=== PATIENT | male | born 1935 | race Caucasian/White ===

== ENCOUNTER 2021-03-02 13:37 | Inpatient (IN) | payer MEDICARE, BC ==
[2021-03-02 14:50] LABS: Hemoglobin 13.8 g/dL (13.5-17.5); Mean Corpuscular HGB CONC 33.9 g/dL (32.0-36.0); Mean Corpuscular Hemoglobin 34.5 pg (27.0-33.0); Mean Corpuscular Volume 101.8 fl (81.2-95.1); Mean Platelet Volume 10.5 fl (7.4-10.4); Platelet Count 117 10x3/uL (150-450); RBC Distribution Width 13.2 % (11.5-14.5); White Blood Cell (WBC) Count 5.5 10x3/uL (3.5-10.5)
[2021-03-02 15:00] LABS: ALT (SGPT) 30 U/L (8-55); AST (SGOT) 47 U/L (5-34); Albumin 3.2 g/dL (3.4-4.8); Alkaline Phosphatase 54 U/L (40-110); Anion Gap 13 mmol/L (10-20); BUN (Urea Nitrogen) 9 mg/dL (8.4-25.7); Bilirubin, Total 0.7 mg/dL (0.2-1.2); Calc. Creatinine Clearance 0 mL/min (70-130); Calcium 8.3 mg/dL (7.8-10.44); Carbon Dioxide 28 mmol/L (23-31); Chloride 98 mmol/L (98-107); Globulin 3.4 g/dL (2.4-3.5); Glucose 84 mg/dL (83-110); Potassium 4.4 mmol/L (3.5-5.1); Protein, Total 6.6 g/dL (5.8-8.1); Sodium 135 mmol/L (136-145)
[2021-03-02 15:19] LABS: CKMB 3.7 ng/mL (0-6.6)
[2021-03-02 15:47] LABS: Monocytes 5 % (0-10)
[2021-03-02 15:54] LABS: Lymphocytes 7 % (21-51); Reactive Lymphocytes 2 % (0-10)
[2021-03-02 15:55] LABS: Neutrophil 85 % (42-75)
[2021-03-02 15:56] LABS: Platelet Morphology Comment Appears Decreased
[2021-03-02] MEDS ORDERED: Dexamethasone 10 MG/ML VIAL ONE (16:07)
[2021-03-02] MEDS ORDERED: cefTRIAXone\\ROCEPHIN 1 GM VIAL ONE (16:08)
[2021-03-02] MEDS ORDERED: Azithromycin 500 MG VIAL ONE (16:08)
[2021-03-02 16:16] LABS: Bilirubin Neg (Negative); Blood, Urine Negative (Negative); Clarity Clear (Clear); Glucose, Urine (Dipstick) >=1000 mg/dL (Negative); Ketone, Urine 5 mg/dL (Negative); Leukocyte Negative (Negative); Nitrite Negative (Negative); Protein, Urine (Dipstick) 30 mg/dl (Neg-Trace); Urobilinogen Normal mg/dL (Less than 2)
[2021-03-02 16:23] LABS: Bacteria/HPF Rare-Few HPF (None Seen); RBC/HPF 0-3 HPF (0-3); Squamous Epithelial 0-3 HPF (0-3); WBC/HPF 0-3 HPF (0-3)
[2021-03-02 18:02] LABS: Troponin I 0.039 ng/mL (< 0.028)
[2021-03-02] MEDS ORDERED: Senokot S 8.6-50 MG TAB PO PRN (18:04)
[2021-03-02] MEDS ORDERED: Ondansetron PF 4 MG/2 ML Vial IVP PRN (18:04)
[2021-03-02] MEDS ORDERED: Acetaminophen 325 MG TAB PO PRN (18:04)
[2021-03-02] MEDS ORDERED: Ondansetron ODT 4 MG TAB PO PRN (18:04)
[2021-03-02] MEDS ORDERED: Acetaminophen 650 MG Suppository PR PRN (18:04)
[2021-03-02] MEDS ORDERED: Dextrose 50% Abboject 50 ML SYRINGE SLOW IVP PRN (18:07)
[2021-03-02] MEDS ORDERED: HumaLOG 300 UNITS/3 ML VIAL SC PRN (18:07)
[2021-03-02] MEDS ORDERED: Dextrose 5% in Water 1,000 ML IV PRN (18:07)
[2021-03-02] MEDS ORDERED: Benzonatate 100 MG CAP PO PRN (18:08)
[2021-03-02] MEDS ORDERED: Guaifenesin DM 100-10/5 ML UDCUP PO PRN (19:03)
[2021-03-02 19:32] VITALS: BMI 27.6
[2021-03-02] MEDS: Melatonin 3 MG TAB PO PRN (20:11)
[2021-03-02] MEDS ORDERED: Enoxaparin Sodium 40 MG/0.4 ML SYRINGE SC SCH (21:00)
[2021-03-03] MEDS ORDERED: Ondansetron PF 4 MG/2 ML Vial IVP PRN (04:56)
[2021-03-03 05:19] LABS: Anion Gap 13 mmol/L (10-20); BUN (Urea Nitrogen) 11 mg/dL (8.4-25.7); Calc. Creatinine Clearance 85 mL/min (70-130); Calcium 8.6 mg/dL (7.8-10.44); Carbon Dioxide 27 mmol/L (23-31); Chloride 102 mmol/L (98-107); Glucose 134 mg/dL (83-110); Potassium 4.6 mmol/L (3.5-5.1); Sodium 137 mmol/L (136-145)
[2021-03-03 05:23] LABS: Hemoglobin 14.4 g/dL (13.5-17.5); Mean Corpuscular Hemoglobin 34.2 pg (27.0-33.0); Mean Corpuscular Volume 100.5 fl (81.2-95.1); RBC Distribution Width 13.2 % (11.5-14.5); Red Blood Cell (RBC) Count 4.21 10x6/uL (4.32-5.72)
[2021-03-03 05:24] LABS: Platelet Count 122 10x3/uL (150-450)
[2021-03-03 06:11] LABS: MDiff Complete? YES
[2021-03-03 06:17] LABS: Band 3 % (5-11); Lymphocytes 5 % (21-51); Monocytes 7 % (0-10); Neutrophil 76 % (42-75); Reactive Lymphocytes 9 % (0-10)
[2021-03-03 06:18] LABS: Platelet Morphology Comment Appears Adequate; RBC Morphology Normal
[2021-03-03] MEDS: Folic Acid/Vit B Comp W-C PO SCH (10:31)
[2021-03-03] MEDS: Aspirin 81 mg Enteric Coated Tablet PO SCH (10:31)
[2021-03-03] MEDS: Enoxaparin Sodium 40 MG/0.4 ML SYRINGE SC SCH (10:31)
[2021-03-03] MEDS: Ascorbic Acid 500 mg Chewable Tablet PO SCH (10:31)
[2021-03-03] MEDS: Zinc Sulfate 220 MG CAP PO SCH (10:31)
[2021-03-03] MEDS: Dexamethasone 20 MG/5 ML VIAL SLOW IVP SCH ×2 (10:32→19:33)
[2021-03-03 17:13] LABS: SARS-CoV-2 PCR by NAA DETECTED (NotDetected)
[2021-03-03] MEDS: Azithromycin 500 MG in Sodium Chloride 0.9% 250 ML 250 ML IVPB SCH (19:31)
[2021-03-03] MEDS: Melatonin 3 MG TAB PO PRN (19:33)
[2021-03-03] MEDS: cefTRIAXone\\ROCEPHIN 1 GM in Sodium Chloride 0.9% 100 ML IVPB SCH (19:33)
[2021-03-03] MEDS: HumaLOG 300 UNITS/3 ML VIAL SC PRN (20:05)
[2021-03-04 05:31] LABS: Hemoglobin 14.2 g/dL (13.5-17.5); Mean Corpuscular HGB CONC 34.4 g/dL (32.0-36.0); Mean Corpuscular Hemoglobin 34.9 pg (27.0-33.0); Mean Corpuscular Volume 101.5 fl (81.2-95.1); Mean Platelet Volume 9.9 fl (7.4-10.4); Platelet Count 138 10x3/uL (150-450); RBC Distribution Width 12.9 % (11.5-14.5); Red Blood Cell (RBC) Count 4.07 10x6/uL (4.32-5.72); White Blood Cell (WBC) Count 6.5 10x3/uL (3.5-10.5)
[2021-03-04 05:42] LABS: Anion Gap 12 mmol/L (10-20); BUN (Urea Nitrogen) 18 mg/dL (8.4-25.7); Calc. Creatinine Clearance 82 mL/min (70-130); Calcium 8.4 mg/dL (7.8-10.44); Carbon Dioxide 25 mmol/L (23-31); Chloride 103 mmol/L (98-107); Glucose 174 mg/dL (83-110); Potassium 4.4 mmol/L (3.5-5.1); Sodium 136 mmol/L (136-145)
[2021-03-04] MEDS: HumaLOG 300 UNITS/3 ML VIAL SC PRN ×2 (06:45→18:21)
[2021-03-04 06:58] LABS: Manual Diff?? YES
[2021-03-04 06:59] LABS: MDiff Complete? YES
[2021-03-04 07:15] LABS: Band 3 % (5-11); Lymphocytes 7 % (21-51); Monocytes 4 % (0-10); Neutrophil 84 % (42-75); Reactive Lymphocytes 2 % (0-10)
[2021-03-04 07:18] LABS: Platelet Morphology Comment Appears Adequate
[2021-03-04] MEDS: Dexamethasone 20 MG/5 ML VIAL SLOW IVP SCH ×2 (10:11→20:16)
[2021-03-04] MEDS: Enoxaparin Sodium 40 MG/0.4 ML SYRINGE SC SCH (10:11)
[2021-03-04] MEDS: Folic Acid/Vit B Comp W-C PO SCH (10:11)
[2021-03-04] MEDS: Ascorbic Acid 500 mg Chewable Tablet PO SCH (10:11)
[2021-03-04] MEDS: Zinc Sulfate 220 MG CAP PO SCH (10:12)
[2021-03-04] MEDS: Aspirin 81 mg Enteric Coated Tablet PO SCH (10:12)
[2021-03-04] MEDS ORDERED: Sodium Chloride 0.9% 250 ML 250 ML ONE (16:36)
[2021-03-04] MEDS: Azithromycin 500 MG in Sodium Chloride 0.9% 250 ML 250 ML IVPB SCH (16:45)
[2021-03-04] MEDS: cefTRIAXone\\ROCEPHIN 1 GM in Sodium Chloride 0.9% 100 ML IVPB SCH (16:46)
[2021-03-05 05:08] LABS: Anion Gap 14 mmol/L (10-20); BUN (Urea Nitrogen) 20 mg/dL (8.4-25.7); Calc. Creatinine Clearance 89 mL/min (70-130); Carbon Dioxide 24 mmol/L (23-31); Chloride 105 mmol/L (98-107); Glucose 179 mg/dL (83-110); Potassium 4.4 mmol/L (3.5-5.1); Sodium 139 mmol/L (136-145)
[2021-03-05 05:13] LABS: #Monocytes 0.3 10x3/uL (0.0-1.1); #Neutrophils 7.9 10x3/uL (1.5-8.4); %Basophils 0.1 % (0.0-2.0); %Lymphocytes 4.4 % (18.0-47.0); %Monocytes 3.8 % (0.0-10.0); %Neutrophils 90.9 % (40.0-75.0); Hemoglobin 13.9 g/dL (13.5-17.5); Mean Corpuscular Hemoglobin 34.5 pg (27.0-33.0); Mean Corpuscular Volume 101.5 fl (81.2-95.1); Mean Platelet Volume 10.4 fl (7.4-10.4); Platelet Count 159 10x3/uL (150-450); RBC Distribution Width 12.6 % (11.5-14.5); Red Blood Cell (RBC) Count 4.03 10x6/uL (4.32-5.72); White Blood Cell (WBC) Count 8.7 10x3/uL (3.5-10.5)
[2021-03-05] MEDS: HumaLOG 300 UNITS/3 ML VIAL SC PRN ×2 (06:29→16:30)
[2021-03-05] MEDS ORDERED: Cholecalciferol 1,000 UNITS (25 MCG) TAB PO SCH (09:00)
[2021-03-05] MEDS: Aspirin 81 mg Enteric Coated Tablet PO SCH (09:27)
[2021-03-05] MEDS: Folic Acid/Vit B Comp W-C PO SCH (09:27)
[2021-03-05] MEDS: Ascorbic Acid 500 mg Chewable Tablet PO SCH (09:27)
[2021-03-05] MEDS: Zinc Sulfate 220 MG CAP PO SCH (09:27)
[2021-03-05] MEDS: Dexamethasone 20 MG/5 ML VIAL SLOW IVP SCH (09:27)
[2021-03-05] MEDS: Enoxaparin Sodium 40 MG/0.4 ML SYRINGE SC SCH (09:27)
[2021-03-05 17:32] VITALS: BP 175/79; TEMP 97.4
[2021-03-05] MEDS: Azithromycin 500 MG in Sodium Chloride 0.9% 250 ML 250 ML IVPB SCH (19:07)
[2021-03-05] MEDS: cefTRIAXone\\ROCEPHIN 1 GM in Sodium Chloride 0.9% 100 ML IVPB SCH (19:07)
== END 2021-03-05 18:20 | disposition home or self-care (01) | DRG 177 ==
LOC: CSHERS 13:37 → CSHTELE 18:46
PROVIDERS: ADMIT Student in an Organized Health Care Education/Training Program; ATTEND Hospitalist
PROC: 8E0ZXY6 Isolation (ICD-10-PCS; principal; 2021-03-02)
PROC: 3E0333Z Introduction of Anti-inflammatory into Peripheral Vein, Percutaneous Approach (ICD-10-PCS; 2021-03-03)
DX: U07.1 COVID-19 (principal); J12.82 Pneumonia due to coronavirus disease 2019; J96.01 Acute respiratory failure with hypoxia; I10 Essential (primary) hypertension; E78.5 Hyperlipidemia, unspecified; E11.9 Type 2 diabetes mellitus without complications; I45.10 Unspecified right bundle-branch block; I25.10 Atherosclerotic heart disease of native coronary artery without angina pectoris; Z95.1 Presence of aortocoronary bypass graft; Z88.8 Allergy status to other drugs, medicaments and biological substances; Z79.899 Other long term (current) drug therapy; Z79.82 Long term (current) use of aspirin; Z79.4 Long term (current) use of insulin
CPT/HCPCS: 36415; 36416; 71045; 80048; 80053; 81003; 81015; 82553; 82728; 83880; 84484; 85025; 86140; 87040; 93005; 93010; 94760; J0456; J0696; J1100; J1650; J1815; J2405; J3490; J7050; U0003; U0005